=== PATIENT | male | born 1945 | race Caucasian/White ===

== ENCOUNTER 2021-10-13 06:02 | Inpatient (IN) ==
[~2021-10-13 06:02] MED LIST: Buckersberg's Blood Cardioplegia PF ONE; Heparin 15,000 UNIT in 0.9 % Sodium Chloride 500 ML IR ONE; Norepinephrine 4 MG in 0.9 % Sodium Chloride 250 ML IVC PRN; del Nido Cardioplegia Solution PF ONE
[2021-10-13] MEDS ORDERED: NiCARdipine 2.5 MG/10 ML Syringe IVPB ONE (06:07)
[2021-10-13] MEDS ORDERED: Heparin 1,000 UNITS/500 mL 500 ML ONE (06:09)
[2021-10-13] MEDS ORDERED: *HR* Midazolam HCl 5 MG/5 ML VIAL IVP ONE (06:11)
[2021-10-13] MEDS ORDERED: *HR* FentaNYL (PF) 1,000 MCG/20 ML VIAL ONE (06:11)
[2021-10-13] MEDS ORDERED: Famotidine 20 MG/2 ML VIAL ONE (06:12)
[2021-10-13] MEDS ORDERED: *HR* Magnesium Sulfate 1 GM/2 ML VIAL ONE (06:12)
[2021-10-13] MEDS ORDERED: Tranexamic Acid 1,000 MG/10 ML VIAL ONE (06:12)
[2021-10-13] MEDS ORDERED: *HR* Propofol 200 MG/20 ML VIAL IVP ONE (06:12)
[2021-10-13] MEDS ORDERED: *HR* Rocuronium Bromide 50 MG/5 ML VIAL ONE ×3 (06:12→11:24)
[2021-10-13] MEDS ORDERED: Lidocaine 2% Syringe 100 MG/5 ML ONE (06:17)
[2021-10-13] MEDS ORDERED: Chlorhexidine Rinse 15 ML MOUTHWASH MM ONE (06:18)
[2021-10-13] MEDS: Ringers Solution, Lactated 1,000 ML IVC SCH (06:51)
[2021-10-13] MEDS ORDERED: Buckersberg's Blood Cardioplegia PF ONE (07:00)
[2021-10-13] MEDS ORDERED: Heparin 15,000 UNIT in 0.9 % Sodium Chloride 500 ML IR ONE (07:00)
[2021-10-13] MEDS ORDERED: del Nido Cardioplegia Solution PF ONE ×2 (07:00)
[2021-10-13] MEDS ORDERED: Norepinephrine 4 MG in 0.9 % Sodium Chloride 250 ML IVC PRN (07:00)
[2021-10-13] MEDS ORDERED: DOBUTamine 1,000 MG/250 ML BAG ONE (07:11)
[2021-10-13] MEDS ORDERED: Vancomycin 1,000 MG VIAL ONE (07:25)
[2021-10-13 07:38] LABS: ABG Base Excess -2 mEq/L (-2 to 3); ABG Chloride 107 mEq/L (98-107); ABG Glucose 101 mg/dL (60-95); ABG HCO3 24 mEq/L (21-27); ABG Ionized Calcium 1.21 mmol/L (1.15-1.35); ABG Oxygen Saturation 100 % (95-98); ABG PCO2 43 mmHg (35-45); ABG PH 7.36 pH Units (7.32-7.45); ABG PO2 497 mmHg (85-104); ABG TCO2 25 mEq/L (20-26)
[2021-10-13] MEDS: CeFAZolin Syr 2,000MG/20 ML 2,000 MG/20 ML SYRINGE IVPB ONE ×2 (08:00→12:00)
[2021-10-13 09:00] LABS: ABG Base Excess -1 mEq/L (-2 to 3); ABG Chloride 106 mEq/L (98-107); ABG Glucose 107 mg/dL (60-95); ABG HCO3 23 mEq/L (21-27); ABG Ionized Calcium 1.09 mmol/L (1.15-1.35); ABG Oxygen Saturation 100 % (95-98); ABG PCO2 36 mmHg (35-45); ABG PH 7.41 pH Units (7.32-7.45); ABG PO2 268 mmHg (85-104); ABG TCO2 24 mEq/L (20-26)
[2021-10-13 09:19] LABS: ABG Base Excess -2 mEq/L (-2 to 3); ABG Chloride 102 mEq/L (98-107); ABG Glucose 105 mg/dL (60-95); ABG HCO3 23 mEq/L (21-27); ABG Ionized Calcium 1.06 mmol/L (1.15-1.35); ABG Oxygen Saturation 100 % (95-98); ABG PCO2 41 mmHg (35-45); ABG PH 7.37 pH Units (7.32-7.45); ABG PO2 526 mmHg (85-104); ABG TCO2 25 mEq/L (20-26)
[2021-10-13 09:53] LABS: ABG Base Excess 0 mEq/L (-2 to 3); ABG Chloride 104 mEq/L (98-107); ABG Glucose 111 mg/dL (60-95); ABG HCO3 25 mEq/L (21-27); ABG Ionized Calcium 0.99 mmol/L (1.15-1.35); ABG Oxygen Saturation 100 % (95-98); ABG PCO2 42 mmHg (35-45); ABG PH 7.38 pH Units (7.32-7.45); ABG PO2 537 mmHg (85-104); ABG TCO2 26 mEq/L (20-26)
[2021-10-13 10:24] LABS: ABG Base Excess 0 mEq/L (-2 to 3); ABG Chloride 103 mEq/L (98-107); ABG Glucose 143 mg/dL (60-95); ABG HCO3 29 mEq/L (21-27); ABG Ionized Calcium 1.14 mmol/L (1.15-1.35); ABG Oxygen Saturation 100 % (95-98); ABG PCO2 69 mmHg (35-45); ABG PH 7.23 pH Units (7.32-7.45); ABG PO2 526 mmHg (85-104); ABG TCO2 31 mEq/L (20-26)
[2021-10-13 10:37] LABS: ABG Base Excess 0 mEq/L (-2 to 3); ABG Chloride 105 mEq/L (98-107); ABG Glucose 161 mg/dL (60-95); ABG HCO3 26 mEq/L (21-27); ABG Ionized Calcium 1.09 mmol/L (1.15-1.35); ABG Oxygen Saturation 100 % (95-98); ABG PCO2 49 mmHg (35-45); ABG PH 7.33 pH Units (7.32-7.45); ABG PO2 509 mmHg (85-104); ABG TCO2 28 mEq/L (20-26)
[2021-10-13 10:56] LABS: ABG Base Excess 0 mEq/L (-2 to 3); ABG Chloride 104 mEq/L (98-107); ABG Glucose 165 mg/dL (60-95); ABG HCO3 24 mEq/L (21-27); ABG Ionized Calcium 1.07 mmol/L (1.15-1.35); ABG Oxygen Saturation 100 % (95-98); ABG PCO2 35 mmHg (35-45); ABG PH 7.44 pH Units (7.32-7.45); ABG PO2 464 mmHg (85-104); ABG TCO2 25 mEq/L (20-26)
[2021-10-13] MEDS ORDERED: Protamine Sulfate 250 MG/25 ML VIAL IVP ONE (10:56)
[2021-10-13] MEDS ORDERED: Calcium Gluconate 1,000 MG/10 ML VIAL ONE (10:56)
[2021-10-13 11:27] LABS: ABG Base Excess -1 mEq/L (-2 to 3); ABG Chloride 104 mEq/L (98-107); ABG Glucose 148 mg/dL (60-95); ABG HCO3 24 mEq/L (21-27); ABG Ionized Calcium 1.37 mmol/L (1.15-1.35); ABG Oxygen Saturation 100 % (95-98); ABG PCO2 38 mmHg (35-45); ABG PO2 522 mmHg (85-104); ABG TCO2 25 mEq/L (20-26)
[2021-10-13] MEDS ORDERED: Albumin Human 5% 12.5 GM/250 ML IV.SOLN ONE (11:53)
[2021-10-13 12:05] LABS: ABG Base Excess -3 mEq/L (-2 to 3); ABG Chloride 107 mEq/L (98-107); ABG Glucose 138 mg/dL (60-95); ABG HCO3 21 mEq/L (21-27); ABG Ionized Calcium 1.34 mmol/L (1.15-1.35); ABG Oxygen Saturation 99 % (95-98); ABG PCO2 36 mmHg (35-45); ABG PH 7.38 pH Units (7.32-7.45); ABG PO2 163 mmHg (85-104); ABG TCO2 23 mEq/L (20-26)
[2021-10-13] MEDS ORDERED: Sennosides 8.6 MG TABLET PO PRN (12:13)
[2021-10-13] MEDS ORDERED: Naloxone 0.4 MG/ML INJ IVP PRN (12:13)
[2021-10-13] MEDS ORDERED: *HR* Promethazine 25 MG/ML VIAL IM PRN (12:13)
[2021-10-13] MEDS ORDERED: Ondansetron 4 MG/2 ML VIAL IVP PRN (12:13)
[2021-10-13] MEDS ORDERED: Ipratropium/Albuterol Neb 3 ML IH PRN (12:13)
[2021-10-13] MEDS ORDERED: Albuterol 2.5 MG/3 ML NEBULIZER IH PRN (12:13)
[2021-10-13] MEDS ORDERED: Insulin Regular, Human 100 UNIT/ML IV PRN (12:13)
[2021-10-13] MEDS ORDERED: *HR* Dextrose 50 % in Water (Syg) 50 ML SYRINGE IVP PRN (12:13)
[2021-10-13] MEDS ORDERED: Calcium Gluconate 1gm/50mL 1 GM/50 ML BAG IVPB PRN (12:13)
[2021-10-13] MEDS ORDERED: Potassium Chloride 40 MEQ/200 ML BAG IVPB PRN (12:13)
[2021-10-13] MEDS ORDERED: Albumin Human 5% 75.0 GM/1,500 ML IV.SOLN ONE (12:35)
[2021-10-13 12:45] LABS: ABG Base Excess -2 mEq/L (-2 to 3); ABG HCO3 23 mEq/L (21-27); ABG Oxygen Saturation 100 % (95-98); ABG PCO2 37 mmHg (35-45); ABG PO2 163 mmHg (85-104); ABG TCO2 24 mEq/L (20-26); Blood Gas Modality AF; Blood Gas VT 600 cc
[2021-10-13 12:56] LABS: Basophils % 0.4 %; Eosinophils % 0.8 %; Mean Corpuscular HGB Conc 33.9 g/dL (31.6-35.5); Mean Corpuscular Hemoglobin 31.3 pg (28.0-33.3); Red Cell Distribution Width 13.2 % (11.5-14.5)
[2021-10-13 12:58] LABS: Basophils # 0.1 K/mcL (0.0-0.2); Eosinophils # 0.1 K/mcL (0.0-0.6); Hematocrit 33.9 % (37.5-50.1); Hemoglobin 11.5 g/dL (12.9-16.9); Immature Granulocytes % 0.5 % (0-4); Immature Platelets 9.6 % (1.1-6.1); Lymphocytes # 1.1 K/mcL (0.6-4.6); Lymphocytes % 7.6 %; Mean Corpuscular Volume 92.1 fL (83.0-100.0); Monocytes # 0.5 K/mcL (0.0-1.3); Monocytes % 3.5 %; Neutrophils # 12.1 K/mcL (1.6-8.9); Platelet Count 100 K/mcL (140-400); Red Blood Count 3.68 M/mcL (4.19-5.50); Segmented Neutrophils % 87.2 %; White Blood Count 13.9 K/mcL (4.3-11.1)
[2021-10-13] MEDS: Albumin Human 5% 12.5 GM/250 ML IV.SOLN IVPB PRN ×4 (13:00→22:02)
[2021-10-13 13:06] LABS: INR 1.4; Prothrombin Time 16.1 Seconds (9.4-12.1)
[2021-10-13 13:08] LABS: Activated Partial Thrombo Time 29.9 Seconds (26.0-36.0)
[2021-10-13 13:19] LABS: Calcium 9.2 mg/dL (8.6-10.3); Potassium 4.1 mEq/L (3.5-5.1)
[2021-10-13] MEDS ORDERED: niCARdipine 20 MG/200 ML MLS IVC ONE (13:32)
[2021-10-13 16:27] LABS: ABG Base Excess -3 mEq/L (-2 to 3); ABG HCO3 21 mEq/L (21-27); ABG Oxygen Saturation 99 % (95-98); ABG PCO2 33 mmHg (35-45); ABG PH 7.42 pH Units (7.32-7.45); ABG PO2 139 mmHg (85-104); ABG TCO2 22 mEq/L (20-26); Blood Gas Modality AF; Blood Gas VT 600 cc
[2021-10-13] MEDS ORDERED: Lidocaine 2% Syringe 100 MG/5 ML IVP ONE (16:35)
[2021-10-13] MEDS ORDERED: *HR* Phenylephrine 10 MG/ML VIAL IVC ONE (16:35)
[2021-10-13] MEDS ORDERED: Mannitol 25% vial 12.5 GM/50 ML VIAL IVPB ONE (16:35)
[2021-10-13] MEDS ORDERED: D5% in Water 250 ML IV BAG IV ONE (16:35)
[2021-10-13] MEDS ORDERED: *HR* Heparin 10,000 UNIT/10 ML VIAL IR ONE (16:35)
[2021-10-13] MEDS ORDERED: Albumin Human 25% 25 GM/100 ML IV.SOLN IVPB ONE (16:35)
[2021-10-13] MEDS ORDERED: *HR* Magnesium Sulfate 2 GM/50 ML PIGGYBACK IVPB ONE (16:35)
[2021-10-13] MEDS: Metoclopramide 10 MG/2 ML VIAL IVP SCH ×2 (17:54→23:58)
[2021-10-13] MEDS: *HR* FentaNYL (PF) 100 MCG/2 ML VIAL IVP PRN ×2 (18:06→23:45)
[2021-10-13] MEDS ORDERED: Ketorolac 30 MG/ML VIAL IVP PRN (18:25)
[2021-10-13 18:29] LABS: ABG Base Excess -1 mEq/L (-2 to 3); ABG HCO3 23 mEq/L (21-27); ABG Oxygen Saturation 100 % (95-98); ABG PCO2 35 mmHg (35-45); ABG PH 7.42 pH Units (7.32-7.45); ABG PO2 158 mmHg (85-104); ABG TCO2 24 mEq/L (20-26); Blood Gas Pressure Support 5 cm H2O
[2021-10-13] MEDS: DOBUTamine 1,000 MG/250 ML BAG IVC SCH (19:47)
[2021-10-13] MEDS: Norepinephrine 4 MG/254 ML IV.SOLN IVC SCH ×2 (19:48→22:00)
[2021-10-13] MEDS: niCARdipine 20 MG/200 ML MLS IVC SCH ×3 (19:48→23:59)
[2021-10-13] MEDS: Chlorhexidine Rinse 15 ML MOUTHWASH MM SCH (19:54)
[2021-10-13] MEDS: *HR* OxyCODONE/APAP 5/325 TABLET PO PRN (21:21)
[2021-10-13 21:31] LABS: Basophils % 0.1 %; Hematocrit 27.6 % (37.5-50.1); Immature Granulocytes % 0.5 % (0-4); Lymphocytes # 0.5 K/mcL (0.6-4.6); Lymphocytes % 3.2 %; Mean Corpuscular HGB Conc 34.4 g/dL (31.6-35.5); Mean Corpuscular Hemoglobin 31.7 pg (28.0-33.3); Mean Platelet Volume 10.7 fL (9.4-12.4); Monocytes # 0.8 K/mcL (0.0-1.3); Monocytes % 5.4 %; Neutrophils # 12.7 K/mcL (1.6-8.9); Platelet Count 176 K/mcL (140-400); Red Cell Distribution Width 13.2 % (11.5-14.5); Segmented Neutrophils % 90.8 %
[2021-10-13 21:32] LABS: Hemoglobin 9.5 g/dL (12.9-16.9)
[2021-10-13 21:44] LABS: INR 1.3; Prothrombin Time 14.6 Seconds (9.4-12.1)
[2021-10-13 21:48] LABS: Activated Partial Thrombo Time 27.1 Seconds (26.0-36.0)
[2021-10-13] MEDS ORDERED: 0.9 % Sodium Chloride 250 ML ONE ×2 (22:34→23:53)
[2021-10-14] MEDS: *HR* OxyCODONE/APAP 5/325 TABLET PO PRN ×5 (01:14→21:27)
[2021-10-14] MEDS: *HR* FentaNYL (PF) 100 MCG/2 ML VIAL IVP PRN ×3 (02:05→11:28)
[2021-10-14 04:56] LABS: Basophils % 0.2 %; Immature Granulocytes % 0.2 % (0-4)
[2021-10-14 04:58] LABS: Hematocrit 21.8 % (37.5-50.1); Hemoglobin 7.4 g/dL (12.9-16.9); Immature Platelets 8.5 % (1.1-6.1); Lymphocytes # 0.7 K/mcL (0.6-4.6); Lymphocytes % 6.1 %; Mean Corpuscular HGB Conc 33.9 g/dL (31.6-35.5); Mean Corpuscular Hemoglobin 30.1 pg (28.0-33.3); Mean Corpuscular Volume 88.6 fL (83.0-100.0); Mean Platelet Volume 11.2 fL (9.4-12.4); Monocytes # 1.2 K/mcL (0.0-1.3); Monocytes % 10.7 %; Neutrophils # 9.2 K/mcL (1.6-8.9); Platelet Count 140 K/mcL (140-400); Red Blood Count 2.46 M/mcL (4.19-5.50); Red Cell Distribution Width 15.5 % (11.5-14.5); Segmented Neutrophils % 82.8 %; White Blood Count 11.1 K/mcL (4.3-11.1)
[2021-10-14 05:14] LABS: Calcium 8.2 mg/dL (8.6-10.3); INR 1.3; Magnesium 2.2 mg/dL (1.6-2.6); Potassium 4.2 mEq/L (3.5-5.1); Prothrombin Time 14.4 Seconds (9.4-12.1)
[2021-10-14 05:17] LABS: Activated Partial Thrombo Time 27.8 Seconds (26.0-36.0)
[2021-10-14] MEDS: niCARdipine 20 MG/200 ML MLS IVC SCH ×3 (05:56→20:46)
[2021-10-14] MEDS: Ringers Solution, Lactated 1,000 ML IVC SCH (05:56)
[2021-10-14] MEDS: Metoclopramide 10 MG/2 ML VIAL IVP SCH ×3 (05:56→17:26)
[2021-10-14] MEDS ORDERED: Bumetanide 1 MG/4 ML VIAL IVP ONE (06:59)
[2021-10-14] MEDS: Aspirin Enteric Coated 81 MG Tablet PO SCH (07:42)
[2021-10-14] MEDS: Chlorhexidine Rinse 15 ML MOUTHWASH MM SCH ×2 (07:42→20:58)
[2021-10-14] MEDS ORDERED: Albumin Human 5% 12.5 GM/250 ML IV.SOLN ONE (08:09)
[2021-10-14] MEDS: Albumin Human 5% 12.5 GM/250 ML IV.SOLN IVPB PRN ×2 (08:16→08:37)
[2021-10-14] MEDS ORDERED: Furosemide 20 MG/2 ML VIAL IVP SCH (09:00)
[2021-10-14] MEDS ORDERED: 0.9 % Sodium Chloride 250 ML ONE (09:14)
[2021-10-14 12:19] LABS: Mean Corpuscular Hemoglobin 30.2 pg (28.0-33.3)
[2021-10-14 12:21] LABS: Basophils % 0.2 %; Hematocrit 23.6 % (37.5-50.1); Hemoglobin 8.1 g/dL (12.9-16.9); Immature Granulocytes % 0.5 % (0-4); Immature Platelets 10.1 % (1.1-6.1); Lymphocytes # 0.8 K/mcL (0.6-4.6); Lymphocytes % 6.2 %; Mean Corpuscular HGB Conc 34.3 g/dL (31.6-35.5); Mean Corpuscular Volume 88.1 fL (83.0-100.0); Mean Platelet Volume 11.3 fL (9.4-12.4); Monocytes # 1.4 K/mcL (0.0-1.3); Neutrophils # 10.5 K/mcL (1.6-8.9); Platelet Count 112 K/mcL (140-400); Red Blood Count 2.68 M/mcL (4.19-5.50); Red Cell Distribution Width 15.9 % (11.5-14.5); Segmented Neutrophils % 82.1 %; White Blood Count 12.8 K/mcL (4.3-11.1)
[2021-10-14 20:02] LABS: Basophils % 0.1 %; Hematocrit 24.1 % (37.5-50.1); Hemoglobin 8.1 g/dL (12.9-16.9); Immature Granulocytes % 0.3 % (0-4); Lymphocytes # 0.9 K/mcL (0.6-4.6); Lymphocytes % 5.9 %; Mean Corpuscular HGB Conc 33.6 g/dL (31.6-35.5); Mean Corpuscular Hemoglobin 30.1 pg (28.0-33.3); Mean Corpuscular Volume 89.6 fL (83.0-100.0); Mean Platelet Volume 11.6 fL (9.4-12.4); Monocytes # 1.3 K/mcL (0.0-1.3); Monocytes % 9.1 %; Neutrophils # 12.2 K/mcL (1.6-8.9); Platelet Count 124 K/mcL (140-400); Red Blood Count 2.69 M/mcL (4.19-5.50); Red Cell Distribution Width 16.6 % (11.5-14.5); Segmented Neutrophils % 84.6 %; White Blood Count 14.5 K/mcL (4.3-11.1)
[2021-10-14] MEDS: DOBUTamine 1,000 MG/250 ML BAG IVC SCH (20:45)
[2021-10-14] MEDS: Melatonin 3 MG TABLET PO SCH (20:58)
[2021-10-15] MEDS: niCARdipine 20 MG/200 ML MLS IVC SCH ×5 (00:35→22:35)
[2021-10-15] MEDS: Metoclopramide 10 MG/2 ML VIAL IVP SCH ×5 (00:37→23:10)
[2021-10-15] MEDS: Norepinephrine 4 MG/254 ML IV.SOLN IVC SCH ×2 (02:32→22:35)
[2021-10-15] MEDS: Ringers Solution, Lactated 1,000 ML IVC SCH (02:33)
[2021-10-15 08:17] LABS: Basophils % 0.1 %; Hematocrit 24.1 % (37.5-50.1); Hemoglobin 8.1 g/dL (12.9-16.9); Immature Granulocytes % 0.4 % (0-4); Immature Platelets 11.6 % (1.1-6.1); Lymphocytes # 1.1 K/mcL (0.6-4.6); Lymphocytes % 7.9 %; Mean Corpuscular HGB Conc 33.6 g/dL (31.6-35.5); Mean Corpuscular Hemoglobin 30.2 pg (28.0-33.3); Mean Corpuscular Volume 89.9 fL (83.0-100.0); Mean Platelet Volume 11.5 fL (9.4-12.4); Monocytes # 1.4 K/mcL (0.0-1.3); Neutrophils # 11.3 K/mcL (1.6-8.9); Platelet Count 112 K/mcL (140-400); Red Blood Count 2.68 M/mcL (4.19-5.50); Red Cell Distribution Width 16.6 % (11.5-14.5); Segmented Neutrophils % 81.6 %; White Blood Count 13.8 K/mcL (4.3-11.1)
[2021-10-15 08:18] LABS: Calcium 8.4 mg/dL (8.6-10.3); Potassium 4.1 mEq/L (3.5-5.1)
[2021-10-15] MEDS: Chlorhexidine Rinse 15 ML MOUTHWASH MM SCH ×2 (08:45→20:12)
[2021-10-15] MEDS: Aspirin Enteric Coated 81 MG Tablet PO SCH (08:46)
[2021-10-15] MEDS: Furosemide 20 MG/2 ML VIAL IVP SCH ×2 (10:35→17:46)
[2021-10-15] MEDS: DOBUTamine 1,000 MG/250 ML BAG IVC SCH (20:12)
[2021-10-15] MEDS: Melatonin 3 MG TABLET PO SCH (20:12)
[2021-10-16] MEDS: niCARdipine 20 MG/200 ML MLS IVC SCH ×4 (01:09→17:07)
[2021-10-16] MEDS: Ringers Solution, Lactated 1,000 ML IVC SCH (01:09)
[2021-10-16 04:21] LABS: Basophils % 0.1 %; Calcium 8.2 mg/dL (8.6-10.3); Hematocrit 24.6 % (37.5-50.1); Immature Granulocytes % 0.5 % (0-4); Lymphocytes # 1.2 K/mcL (0.6-4.6); Lymphocytes % 9.6 %; Magnesium 2.1 mg/dL (1.6-2.6); Mean Corpuscular HGB Conc 32.5 g/dL (31.6-35.5); Mean Corpuscular Hemoglobin 29.6 pg (28.0-33.3); Mean Corpuscular Volume 91.1 fL (83.0-100.0); Monocytes # 1.3 K/mcL (0.0-1.3); Monocytes % 10.3 %; Neutrophils # 10.3 K/mcL (1.6-8.9); Phosphorous 2.5 mg/dL (2.7-4.5); Platelet Count 109 K/mcL (140-400); Potassium 3.7 mEq/L (3.5-5.1); Red Cell Distribution Width 16.1 % (11.5-14.5); Segmented Neutrophils % 79.5 %; White Blood Count 12.9 K/mcL (4.3-11.1)
[2021-10-16] MEDS: Metoclopramide 10 MG/2 ML VIAL IVP SCH ×3 (05:10→17:06)
[2021-10-16] MEDS: Aspirin Enteric Coated 81 MG Tablet PO SCH (08:12)
[2021-10-16] MEDS: Chlorhexidine Rinse 15 ML MOUTHWASH MM SCH ×2 (08:12→19:59)
[2021-10-16] MEDS: Furosemide 20 MG/2 ML VIAL IVP SCH ×2 (08:12→17:06)
[2021-10-16] MEDS: DOBUTamine 1,000 MG/250 ML BAG IVC SCH (13:23)
[2021-10-16] MEDS: Norepinephrine 4 MG/254 ML IV.SOLN IVC SCH (17:07)
[2021-10-16] MEDS ORDERED: Albuterol 2.5 MG/3 ML NEBULIZER IH PRN (18:10)
[2021-10-16] MEDS ORDERED: *HR* Promethazine 25 MG/ML VIAL IM PRN (18:10)
[2021-10-16] MEDS ORDERED: Naloxone 0.4 MG/ML INJ IVP PRN (18:10)
[2021-10-16] MEDS ORDERED: *HR* OxyCODONE/APAP 5/325 TABLET PO PRN (18:10)
[2021-10-16] MEDS ORDERED: Ipratropium/Albuterol Neb 3 ML IH PRN (18:10)
[2021-10-16] MEDS ORDERED: Ondansetron 4 MG/2 ML VIAL IVP PRN (18:10)
[2021-10-16] MEDS ORDERED: Calcium Gluconate 1gm/50mL 1 GM/50 ML BAG IVPB PRN (18:10)
[2021-10-16] MEDS ORDERED: Sennosides 8.6 MG TABLET PO PRN (18:10)
[2021-10-16] MEDS ORDERED: *HR* Dextrose 50 % in Water (Syg) 50 ML SYRINGE IVP PRN (18:10)
[2021-10-16] MEDS: Melatonin 3 MG TABLET PO SCH (20:00)
[2021-10-17 01:51] LABS: Basophils # 0.1 K/mcL (0.0-0.2); Basophils % 0.4 %; Eosinophils # 0.1 K/mcL (0.0-0.6); Eosinophils % 0.4 %; Hematocrit 28.6 % (37.5-50.1); Hemoglobin 9.3 g/dL (12.9-16.9); Immature Granulocytes % 0.6 % (0-4); Lymphocytes # 1.4 K/mcL (0.6-4.6); Lymphocytes % 10.9 %; Mean Corpuscular HGB Conc 32.5 g/dL (31.6-35.5); Mean Corpuscular Hemoglobin 30.1 pg (28.0-33.3); Mean Corpuscular Volume 92.6 fL (83.0-100.0); Monocytes # 1.3 K/mcL (0.0-1.3); Monocytes % 10.1 %; Neutrophils # 10.2 K/mcL (1.6-8.9); Platelet Count 150 K/mcL (140-400); Red Blood Count 3.09 M/mcL (4.19-5.50); Red Cell Distribution Width 15.8 % (11.5-14.5); Segmented Neutrophils % 77.6 %; White Blood Count 13.1 K/mcL (4.3-11.1)
[2021-10-17 02:36] LABS: Calcium 7.9 mg/dL (8.6-10.3); Magnesium 2.2 mg/dL (1.6-2.6); Phosphorous 2.6 mg/dL (2.7-4.5); Potassium 3.6 mEq/L (3.5-5.1)
[2021-10-17] MEDS: Aspirin Enteric Coated 81 MG Tablet PO SCH (09:07)
[2021-10-17] MEDS: Furosemide 20 MG/2 ML VIAL IVP SCH ×2 (09:07→18:12)
[2021-10-17] MEDS: Chlorhexidine Rinse 15 ML MOUTHWASH MM SCH ×2 (09:09→20:23)
[2021-10-17] MEDS: Melatonin 3 MG TABLET PO SCH (20:23)
[2021-10-18 03:00] LABS: Basophils % 0.4 %; Eosinophils # 0.2 K/mcL (0.0-0.6); Eosinophils % 2.3 %; Hemoglobin 9.2 g/dL (12.9-16.9); Immature Granulocytes % 0.4 % (0-4); Lymphocytes # 1.6 K/mcL (0.6-4.6); Lymphocytes % 15.6 %; Mean Corpuscular HGB Conc 32.9 g/dL (31.6-35.5); Mean Corpuscular Volume 91.2 fL (83.0-100.0); Mean Platelet Volume 11.6 fL (9.4-12.4); Monocytes # 1.1 K/mcL (0.0-1.3); Monocytes % 11.3 %; Platelet Count 206 K/mcL (140-400); Red Blood Count 3.07 M/mcL (4.19-5.50); Red Cell Distribution Width 15.4 % (11.5-14.5)
[2021-10-18 03:17] LABS: Magnesium 2.2 mg/dL (1.6-2.6); Potassium 3.7 mEq/L (3.5-5.1)
[2021-10-18] MEDS: Furosemide 20 MG/2 ML VIAL IVP SCH ×2 (09:23→17:06)
[2021-10-18] MEDS: Chlorhexidine Rinse 15 ML MOUTHWASH MM SCH ×2 (09:23→19:42)
[2021-10-18] MEDS: Aspirin Enteric Coated 81 MG Tablet PO SCH (09:23)
[2021-10-18] MEDS: Melatonin 3 MG TABLET PO SCH (19:42)
[2021-10-18] MEDS ORDERED: *HR* Amiodarone 200 MG TABLET PO SCH (21:00)
[2021-10-19 02:23] LABS: Basophils % 0.5 %; Eosinophils # 0.4 K/mcL (0.0-0.6); Eosinophils % 4.5 %; Hematocrit 25.9 % (37.5-50.1); Hemoglobin 8.4 g/dL (12.9-16.9); Immature Granulocytes % 0.8 % (0-4); Lymphocytes # 1.4 K/mcL (0.6-4.6); Lymphocytes % 16.5 %; Mean Corpuscular HGB Conc 32.4 g/dL (31.6-35.5); Mean Corpuscular Hemoglobin 29.6 pg (28.0-33.3); Mean Corpuscular Volume 91.2 fL (83.0-100.0); Monocytes % 11.4 %; Neutrophils # 5.7 K/mcL (1.6-8.9); Platelet Count 242 K/mcL (140-400); Red Blood Count 2.84 M/mcL (4.19-5.50); Red Cell Distribution Width 14.9 % (11.5-14.5); Segmented Neutrophils % 66.3 %; White Blood Count 8.6 K/mcL (4.3-11.1)
[2021-10-19 02:34] LABS: Magnesium 2.1 mg/dL (1.6-2.6); Phosphorous 3.5 mg/dL (2.7-4.5); Potassium 3.5 mEq/L (3.5-5.1)
[2021-10-19] MEDS: Aspirin Enteric Coated 81 MG Tablet PO SCH (09:46)
[2021-10-19] MEDS: Furosemide 20 MG/2 ML VIAL IVP SCH ×2 (09:46→17:16)
[2021-10-19] MEDS: Chlorhexidine Rinse 15 ML MOUTHWASH MM SCH ×2 (13:14→21:11)
[2021-10-20] MEDS: Melatonin 3 MG TABLET PO SCH (00:31)
[2021-10-20 02:41] LABS: Basophils # 0.1 K/mcL (0.0-0.2); Basophils % 0.5 %; Eosinophils # 0.4 K/mcL (0.0-0.6); Eosinophils % 3.8 %; Hematocrit 26.6 % (37.5-50.1); Hemoglobin 8.8 g/dL (12.9-16.9); Immature Granulocytes % 0.7 % (0-4); Lymphocytes # 1.4 K/mcL (0.6-4.6); Lymphocytes % 15.3 %; Mean Corpuscular HGB Conc 33.1 g/dL (31.6-35.5); Mean Corpuscular Hemoglobin 29.7 pg (28.0-33.3); Mean Corpuscular Volume 89.9 fL (83.0-100.0); Mean Platelet Volume 10.8 fL (9.4-12.4); Monocytes # 1.1 K/mcL (0.0-1.3); Monocytes % 11.4 %; Neutrophils # 6.4 K/mcL (1.6-8.9); Platelet Count 279 K/mcL (140-400); Red Blood Count 2.96 M/mcL (4.19-5.50); Red Cell Distribution Width 14.8 % (11.5-14.5); Segmented Neutrophils % 68.3 %; White Blood Count 9.4 K/mcL (4.3-11.1)
[2021-10-20 03:07] LABS: Calcium 7.9 mg/dL (8.6-10.3); Phosphorous 3.6 mg/dL (2.7-4.5); Potassium 3.7 mEq/L (3.5-5.1)
[2021-10-20 07:48] VITALS: O2SAT 95
[2021-10-20] MEDS: Furosemide 20 MG/2 ML VIAL IVP SCH ×2 (09:11→15:33)
[2021-10-20] MEDS: Chlorhexidine Rinse 15 ML MOUTHWASH MM SCH (09:11)
[2021-10-20] MEDS: Aspirin Enteric Coated 81 MG Tablet PO SCH (09:11)
[2021-10-20 11:10] VITALS: BP 90/58; PULSE 69; TEMP 98.9
[2021-10-20] MEDS ORDERED: Furosemide 20 MG TABLET PO STA (15:32)
== END 2021-10-20 16:36 | disposition home or self-care (01) | DRG 219 ==
LOC: SAMDAY 06:02 → SUATTDRO 07:24 → ICNU 07:24 → 2NNU 10-16 19:20
PROVIDERS: ADMIT Thoracic Surgery (Cardiothoracic Vascular Surgery); ATTEND Internal Medicine